=== PATIENT | female | born 1970 | race Caucasian/White ===

== ENCOUNTER 2025-09-25 15:25 | Emergency (ER) | payer SELFPAY ==
[~2025-09-25] VITALS: Ht 165.1 cm; Wt 54.4 kg
--- NOTE | 2025-09-25 15:33 | ERN ---
ED Note History of Present Illness Stated Complaint: FALL, RIGHT WRIST, FOREARM, NECK Chief Complaint: Mechanical Fall Time Seen by MD: 15:27 Dictation: PATIENT IS A 55-YEAR-OLD FEMALE COMING IN TODAY WITH COMPLAINTS OF RIGHT FOREARM AND RIGHT HAND PAIN SWELLING SHE SUSTAINED FROM A FALL ON STEPS ONE WEEK AGO. SHE DENIES SYNCOPAL EPISODE SHE STATES SHE HAS A MILD NECK PAIN BUT THERE WAS NO MIDLINE SPINE PAIN AND NEUROVASCULAR CMS INTACT TO ALL EXTREMITIES. HER MAIN COMPLAINT IS HER RIGHT FOREARM AND RIGHT HAND. SHE HAD AN FARIHA WRAP THAT WAS IN PLACE FROM HOME. NEUROVASCULAR CMS INTACT SHE TOOK SOME ADVIL PRIOR TO ARRIVAL. NO PRIMARY CARE DOCTOR SHE STATES SHE DID NOT GO TO THE EMERGENCY ROOM OR URGENT CARE BECAUSE SHE DID NOT HAVE ANY INSURANCE ON-CALL. Allergies: Coded Allergies: benzonatate (Unverified Allergy, Unknown, 09/25/25) Home Meds Active Scripts Ibuprofen (Ibuprofen 800 mg Tab) 800 Mg Tab, 800 MG PO Q8H PRN for fever or pain, #30 TAB 0 Refills Prov:JEFFREY HOLBROOK 09/25/25 Past Medical History History: Not Applicable RN Note Reviewed/Agreed w/PFSH: Yes Review of System Dictation CONSTITUTIONAL: NEGATIVE EXCEPT FOR HPI HEAD/FACE: NEGATIVE EXCEPT FOR HPI EENT: NEGATIVE EXCEPT FOR HPI RESPIRATORY: NEGATIVE EXCEPT FOR HPI GASTROINTESTINAL/ABDOMINAL: NEGATIVE EXCEPT FOR HPI GENITOURINARY: NEGATIVE EXCEPT FOR HPI MUSCULOSKELETAL: NEGATIVE EXCEPT FOR HPI RIGHT FOREARM/RIGHT HAND/POSTERIOR CERVICAL NECK PAIN. INTEGUMENTARY: NEGATIVE EXCEPT FOR HPI NEUROLOGICAL/PSYCH: NEGATIVE EXCEPT FOR HPI HEMATOLOGIC/LYMPHATIC: NEGATIVE EXCEPT FOR HPI ALL SYSTEMS NEGATIVE, EXCEPT NOTED ABOVE. 13 POINT REVIEW OF SYSTEMS ASSESSED AND ALL NEGATIVE EXCEPT FOR ABOVE. Initial Vital Sign VS Vital Signs Date Time Temp Pulse Resp B/P (MAP) Pulse Ox O2 Delivery O2 Flow Rate FiO2 09/25/25 15:26 121 18 133/98 98 Room Air 0 09/25/25 15:37 98.1 21 Physical Exam Dictation VITAL SIGNS REVIEWED GENERAL APPEARANCE: ALERT, ORIENTED X 3, MILD ACUTE DISTRESS, WELL DEVELOPED, NOURISHED. PATIENT ONLY WANTS SOMETHING THAT IS MILD HEAD AND FACE: NON-TRAUMATIC. EYES: PERRL, PINK CONJUNCTIVAS, EYELID NO TRAUMA, ANTERIOR CHAMBER WITH ARCUS SENILIS. EARS: PINNAS INTACT AND NO SIGNS OF TRAUMA OR ERYTHEMA EAR CANALS CLEAR AND NO DISCHARGE TM NO ERYTHEMA NOSE: NO DISCHARGE, NO BLEEDING. OROPHARYNX: MOUTH NORMAL, TONGUE PINK, PHARYNX CLEAR,NO ERYTHEMA, TONSILS NO EXUDATES, NO ABSCESSES NOTED, MUCOUS MEMBRANE MOIST NECK: SUPPLE, NON-TENDER, NO THYROMEGALY, NO MASSES, NO JVD, NO BRUITS BREAST:DEFERRED CHEST:NO TENDERNESS, NO CREPITUS, NO PARADOXICAL MOVEMENT, NO RETRACTIONS LUNGS:CLEAR, WELL-VENTILATED, SYMMETRIC, NO RALES, NO WHEEZING, NO RHONCHI, NO STRIDOR, GOOD BREATH SOUNDS BILATERALLY HEART: REGULAR RATE, REGULAR RHYTHM, NO MURMUR, NO GALLOPS VASCULAR: NO PERIPHERAL EDEMA, ABDOMEN: SOFT, POSITIVE BOWEL SOUNDS, NONDISTENDED, NO GUARDING, NONTENDER, NO REBOUND, NO MASSES NO HEPATOMEGALY, NO SPLENOMEGALY, NO NUGENT'S SIGN, NO HERNIAS. RECTAL: DEFERRED GENITAL: DEFERRED NEUROLOGICAL: NORMAL SPEECH, MOTOR FUNCTION INTACT, SENSORY FUNCTION INTACT MUSCULOSKELETAL: MILD DIFFUSE POST SERVICE CERVICAL NECK PAIN NO MIDLINE SPINE PAIN OR STEP-OFFS., FULL RANGE OF MOTION, BACK NONTENDER, FULL RANGE OF MOTION, EXTREMITIES: TENDERNESS SWELLING TO RIGHT FOREARM AND RIGHT HAND. HE HAS [place] MOTION TO BOTH SECONDARY TO PAIN. SKIN: COLOR PINK, DRY, NO TURGOR, NO RASH, NO LACERATIONS, NO ABRASIONS, NO CONTUSIONS. LYMPHATIC: DEFERRED Results (Laboratory/Radiology) Laboratory/Radiology 1648/RIGHT HAND X-RAY NEGATIVE PATIENT HAS RADIAL AND ULNAR FRACTURE NONDISPLACED RIGHT FOREARM Labs Reviewed?: Yes ED Course ED Course Orders Procedure Category Date Status Time Ketorolac 60mg/2ml PHA 09/25/25 Complete (Toradol 60mg/2ml) 15:30 Forearm 2vws Rt RAD 09/25/25 Taken 15:29 Hand 3+Vws Rt RAD 09/25/25 Taken 15:29 Reverse Sugar Tong [place] 09/25/25 Complete Splint 16:43 Sling [place] 09/25/25 Complete 16:43 Current Medications Medications (Trade) Dose Ordered Sig/Dee Route PRN Reason Start Time Stop Time Status Last Admin Dose Admin Ketorolac Tromethamine (toRADol 60MG/ 2ML) 60 mg ONCE ONCE IM 09/25/25 15:30 09/25/25 15:35 DC 09/25/25 15:47 Vital Signs Date Time Temp Pulse Resp B/P (MAP) Pulse Ox O2 Delivery O2 Flow Rate FiO2 09/25/25 17:00 98.1 90 18 127/75 98 Room Air* 0 09/25/25 15:37 98.1 111 18 124/78 98 Room Air* 0 09/25/25 15:26 121 18 133/98 98 Room Air 0 1648/REVERSE SUGAR-TONG SPLINT PLACED BY TECH NEUROVASCULAR CMS INTACT POST PLACEMENT Medical Decision Making MDM MEDICAL DECISION-MAKING BASED ON HPI AND FILMS OF RIGHT HAND AND FOREARM PATIENT HAS RADIAL/ULNAR FRACTURE NONDISPLACED RIGHT FOREARM SPLINT APPLIED WITH NEUROVASCULAR CMS INTACT POST PLACEMENT DISCHARGED HOME WITH SLING SHE WILL BE PRESCRIBED PAIN MEDS AND REFERRED TO DR. LIZETTE PIEDRA DX & DISP Disposition: Discharge Departure Impression: Primary Impression: Closed fracture of right radius and ulna Additional Impression: Fall (on) (from) other stairs and steps, initial encounter Condition: Stable Scripts Ibuprofen (Ibuprofen 800 mg Tab) 800 Mg Tab 800 MG PO Q8H PRN for fever or pain, #30 TAB 0 Refills Prov: JEFFREY HOLBROOK 09/25/25 Referrals: SELF,REFERRAL (PCP) LIZETTE PIEDRA MD Time of Disposition: 16:50 I have reviewed the case, and I agree with, Diagnosis and Plan JEFFREY HOLBROOK Sep 25, 2025 15:33 LUCIE SALAZAR DO Sep 25, 2025 17:07
[2025-09-25] MEDS ORDERED: IBUP-2077 PO (16:51)
[2025-09-25 17:00] VITALS: BP 127/75; PULSE 90; RESP 18; TEMP 98.1; O2SAT 98
--- NOTE | 2025-09-25 17:00 | NUR ---
Rt arm splinted an sling applied, PT TOLERATED WELL
--- NOTE | 2025-09-25 17:14 | HMCIMG ---
EXAM: CR right forearm, 2 views. CLINICAL HISTORY: Right forearm pain status post fall seven days ago. COMPARISON: None provided. FINDINGS: BONES: There is a minimally displaced fracture involving the distal shaft of the right ulna. Cortical remodeling and mild deformity of the shaft of the fifth metacarpal are noted within the field of view, most compatible with sequelae of a prior healed or healing injury. No additional acute fracture or aggressive appearing osseous lesion is identified in the radius or visualized hand bones. JOINTS: The visualized wrist and elbow joint spaces are preserved without radiographic evidence of dislocation. SOFT TISSUES: Mild soft tissue swelling is present adjacent to the distal ulnar shaft fracture, in keeping with soft tissue contusion. No radiopaque foreign body is seen. IMPRESSION: * Minimally displaced distal ulnar shaft fracture with adjacent soft tissue contusion. * Cortical remodeling of the fifth metacarpal shaft consistent with post-traumatic sequelae. * No additional acute osseous abnormality. /[place]
--- NOTE | 2025-09-25 17:17 | HMCIMG ---
EXAM: CR right hand, 4 views. CLINICAL HISTORY: Right hand pain status post fall seven days ago. COMPARISON: None provided. FINDINGS: BONES: There is a minimally displaced fracture involving the distal shaft of the ulna. Cortical remodeling and mild deformity of the shaft of the fifth metacarpal are present, most compatible with post-traumatic sequelae of a healed or healing prior fracture. No additional acute fracture or aggressive appearing osseous lesion is identified in the right hand. JOINTS: Joint spaces are preserved without radiographic evidence of dislocation. SOFT TISSUES: Mild adjacent soft tissue swelling consistent with contusion is seen overlying the distal ulna fracture site. No radiopaque foreign body is identified. IMPRESSION: * Minimally displaced distal ulnar shaft fracture with overlying soft tissue contusion. * Cortical remodeling of the fifth metacarpal shaft in keeping with post-traumatic change. * No additional acute fracture or dislocation. /[place]
== END 2025-09-25 17:01 | disposition home or self-care (01) ==
LOC: EDH 15:25
DX: S52.201A Unspecified fracture of shaft of right ulna, initial encounter for closed fracture (principal); S52.91XA Unspecified fracture of right forearm, initial encounter for closed fracture; W10.8XXA Fall (on) (from) other stairs and steps, initial encounter; Y93.89 Activity, other specified; Y92.89 Other specified places as the place of occurrence of the external cause; Y99.8 Other external cause status
CPT/HCPCS: 99284; 73090; 73130; 29125; 96372; J1885